=== PATIENT | female | born 1960 | race Caucasian/White ===

== ENCOUNTER → 2017-07-01 23:00 | Outpatient (CLI) | payer BC | END | disposition home or self-care (01) | LOC: D.MAMMO 06-30 15:00 | DX: Z12.31 Encounter for screening mammogram for malignant neoplasm of breast (principal) ==

== ENCOUNTER 2018-11-21 15:00 | Outpatient (CLI) | payer BC | END 2018-11-21 15:30 | disposition home or self-care (01) | LOC: D.MAMMO 15:00 | PROVIDERS: ATTEND Family Medicine | DX: R92.1 Mammographic calcification found on diagnostic imaging of breast (principal) ==

== ENCOUNTER → 2019-09-03 07:40 | Outpatient (CLI) | payer BC | END | disposition home or self-care (01) | LOC: D.MAMMO 07:40 → D.US 13:00 | PROVIDERS: ATTEND Nurse Practitioner Family | DX: R92.8 Other abnormal and inconclusive findings on diagnostic imaging of breast (principal) ==